=== PATIENT | female | born 1970 | race Hispanic/Latino ===

== ENCOUNTER → 2023-04-04 | Outpatient (CLI) | payer OTHER | END | disposition home or self-care (01) | LOC: RAH 13:22 | PROVIDERS: ATTEND Internal Medicine | DX: I51.7 Cardiomegaly (principal); E66.01 Morbid (severe) obesity due to excess calories; Z68.42 Body mass index [BMI] 45.0-49.9, adult | CPT/HCPCS: 93306 ==